=== PATIENT | male | born 1965 | race Caucasian/White ===

== ENCOUNTER 2017-11-12 16:21 | Emergency (ER) | payer SELFPAY ==
[2017-11-12 17:25] LABS: #Basophils 0.1 thou/uL (0.0-0.2); #Eosinphils 0.2 thou/uL (0.0-0.7); #Lymphocytes 2.2 thou/uL (1.20-3.40); #Monocytes 1.1 thou/uL (0.11-0.59); #Neutrophils 7.5 thou/uL (1.40-6.50); %Basophils 0.8 % (0.0-1.0); %Eosinophils 1.5 % (0.0-10.0); %Lymphocytes 19.8 % (21.0-51.0); %Monocytes 10.1 % (0.0-10.0); %Neutrophils 67.8 % (42.0-75.0); Hemoglobin 16.9 g/dL (14.0-18.0); Mean Corpuscular HGB CONC 32.8 g/dL (32.0-36.0); Mean Corpuscular Hemoglobin 27.7 pg (27.0-31.0); Mean Corpuscular Volume 84.3 fL (78.0-98.0); Mean Platelet Volume 5.6 fL (7.4-10.4); Platelet Count 369 thou/uL (130-400); RBC Distribution Width 12.7 % (11.5-14.5); Red Blood Cell (RBC) Count 6.11 mill/uL (4.70-6.10); White Blood Cell (WBC) Count 11.1 thou/uL (4.8-10.8)
[2017-11-12 17:35] LABS: Prothrombin Time 13.1 SEC (12.0-14.7)
[2017-11-12 17:42] LABS: ALT (SGPT) 166 U/L (8-55); AST (SGOT) 108 U/L (5-34); Albumin 4.7 g/dL (3.5-5.0); Alkaline Phosphatase 69 U/L (40-150); Anion Gap 14 mmol/L (10-20); BUN (Urea Nitrogen) 13 mg/dL (8.4-25.7); Bilirubin, Total 0.9 mg/dL (0.2-1.2); Calc. Creatinine Clearance 0 mL/min (70-130); Carbon Dioxide 28 mmol/L (22-29); Chloride 103 mmol/L (98-107); Estimated GFR-MDRD 65; Globulin 3.3 g/dL (2.4-3.5); Glucose 119 mg/dL (70-105); Potassium 3.7 mmol/L (3.5-5.1); Sodium 141 mmol/L (136-145)
[2017-11-12 17:45] LABS: Bilirubin Small (Negative); Blood, Urine Negative (Negative); Clarity Clear (Clear); Glucose, Urine (Dipstick) Negative (Negative); Leukocyte Negative (Negative); Nitrite Negative (Negative); Protein, Urine (Dipstick) Negative (Neg-Trace)
--- NOTE | 2017-11-12 17:50 | RAD ---
AP VIEW OF CHEST: 11/12/17 INDICATION: Altered mental status. IMPRESSION: Limited exam. The visualized lungs are clear. The cardiomediastinal silhouette is within normal limits. Costophreni c angles are clear. Visualized osseous structures are unremarkable. COMMENTS: No comparisons available. The lung apices are excluded. POS: [facility]
--- NOTE | 2017-11-12 17:57 | CT ---
CT OF THE BRAIN WITHOUT CONTRAST: 11/12/17 INDICATION: Dizziness without history of trauma or loss of consciousness. COMPARISON: None. FINDINGS: No acute infarct, hemorrhage, or hydrocephalus is present. Septum pellucidum and third ventricle are midline. The mastoid air cells are clear. There is a small mucous retention cyst in the right maxilla ry sinus. There are a few areas of mucosal thickening within the right ethmoid air cells. The skull i s intact. IMPRESSION: No acute intracranial abnormality. POS: [facility]
== END 2017-11-12 18:25 | disposition home or self-care (01) ==
LOC: MADERS 16:21
DX: R42 Dizziness and giddiness (principal); I10 Essential (primary) hypertension; Z79.899 Other long term (current) drug therapy
CPT/HCPCS: 36415; 70450; 71045; 80053; 81003; 85025; 85610; 93005